=== PATIENT | female | born 1965 ===

== ENCOUNTER 2025-04-13 09:53 | Observation (INO) | payer MEDICARE, OTHER ==
[~2025-04-13] VITALS: Ht 154.9 cm; Wt 73.5 kg
[~2025-04-13 09:53] MED LIST: Lidocaine 2%-Epineph 1:200000 20 ML SDV ONE
[2025-04-13] MEDS ORDERED: METHI10 (10:48)
[2025-04-13] MEDS ORDERED: PROP10 (10:48)
[2025-04-13] MEDS ORDERED: TRELEGY ELLIPT1 EACH (10:48)
[2025-04-13] MEDS ORDERED: ALBU90OI (10:49)
[2025-04-13] MEDS ORDERED: DILTIAZEM 24HR120 M4 (10:49)
[2025-04-13] MEDS ORDERED: VITAMIN D325 MC3 (10:50)
[2025-04-13] MEDS ORDERED: Vitamin B Comple1 EA (10:50)
[2025-04-13] MEDS ORDERED: Alph-E-Mixed400 UNIT (10:50)
[2025-04-13] MEDS ORDERED: ALBU8HFA2 (10:51)
[2025-04-13] MEDS ORDERED: ZYRTEC10 M2 (10:51)
[2025-04-13] MEDS ORDERED: C COMPLEX1000 M1 (10:51)
[2025-04-13] MEDS ORDERED: Ipratropium/Albuterol SulF 2.5-0.5MG/3 ML Amp ONE (11:10)
[2025-04-13] MEDS ORDERED: FentaNYL Citrate 50 MCG/ML 2 ML Injection ONE (12:19)
[2025-04-13] MEDS ORDERED: Dexamethasone Sod Phos 10 MG/ML 1ML VIAL ONE (12:21)
[2025-04-13] MEDS ORDERED: Metoclopramide HCl 5MG / ML 2ML Vial ONE (12:21)
[2025-04-13] MEDS ORDERED: Phenylephrine HCl 100 MCG/ML-NS 10MLSYR (1MG/10ML) ONE ×2 (12:21→13:49)
[2025-04-13] MEDS ORDERED: Ondansetron HCl 2 MG / ML 2ML Vial ONE (12:21)
[2025-04-13] MEDS ORDERED: ePHEDrine Sulfate 50 MG/ML 1ML Injection ONE (13:01)
[2025-04-13] MEDS ORDERED: Bupivacaine 0.5% HCl 5 MG/ML 30MLVIAL ONE (13:38)
[2025-04-14] MEDS ORDERED: ACET325UDC PO (10:16)
== END 2025-04-13 18:17 | disposition home or self-care (01) ==
LOC: ORSCSDS 09:53 → PCU 10:01 → ORSCSDS 10:01 → PCU 18:17
PROVIDERS: Otolaryngology; ADMIT Family Medicine
PROC: 0GTH0ZZ Resection of Right Thyroid Gland Lobe, Open Approach (ICD-10-PCS; principal; 2025-04-13 11:30)
PROC: 0GTG0ZZ Resection of Left Thyroid Gland Lobe, Open Approach (ICD-10-PCS; principal; 2025-04-13 11:30)
DX: E05.20 Thyrotoxicosis with toxic multinodular goiter without thyrotoxic crisis or storm (principal); J39.8 Other specified diseases of upper respiratory tract; J43.9 Emphysema, unspecified; Z87.891 Personal history of nicotine dependence; Z79.899 Other long term (current) drug therapy; Z88.0 Allergy status to penicillin; Z91.018 Allergy to other foods; Z99.81 Dependence on supplemental oxygen
CPT/HCPCS: 88307; A9270; J0165; J1100; J2371; J2405; J2704; J2765; J3010; J7120

== ENCOUNTER 2025-04-13 15:30 | Observation (INO) | payer MEDICARE, OTHER ==
[~2025-04-13 15:30] MED LIST changes: +ALBU8HFA2; +ALBU90OI; +Alph-E-Mixed400 UNIT; +C COMPLEX1000 M1; +DILTIAZEM 24HR120 M4; -Lidocaine 2%-Epineph 1:200000 20 ML SDV ONE; +METHI10; +PROP10; +TRELEGY ELLIPT1 EACH; +VITAMIN D325 MC3; +Vitamin B Comple1 EA; +ZYRTEC10 M2
[2025-04-13] MEDS ORDERED: Ondansetron HCl 2 MG / ML 2ML Vial IV PRN (16:00)
[2025-04-13] MEDS ORDERED: FentaNYL Citrate 50 MCG/ML 2 ML Injection IV PRN ×2 (16:00→17:50)
[2025-04-13 17:34] LABS: BASOPHILS ABSOLUTE AUTO 0.04 K/mm3 (0.00-0.23); BASOPHILS PERCENT AUTO 0 % (0-2); EOSINOPHILS ABSOLUTE AUTO 0.00 K/mm3 (0.00-0.68); EOSINOPHILS PERCENT AUTO 0 % (0-6); Hematocrit 36.3 % (33.0-51.0); Hemoglobin 11.3 g/dL (11.5-16.0); IMMATURE GRAN ABSOLUTE AUTO 0.07 K/mm3 (0.00-0.10); IMMATURE GRAN PERCENT AUTO 1 % (0-1); LYMPHOCYTES ABSOLUTE AUTO 0.54 K/mm3 (0.84-5.20); LYMPHOCYTES PERCENT AUTO 4 % (21-46); MONOCYTES ABSOLUTE AUTO 0.11 K/mm3 (0.16-1.47); MONOCYTES PERCENT AUTO 1 % (4-13); Mean Corpuscular HGB Conc 31.1 g/dL (31.5-36.5); Mean Corpuscular Volume 94 fL (80-100); NEUTROPHILS ABSOLUTE AUTO 14.13 K/mm3 (1.96-9.15); NEUTROPHILS PERCENT AUTO 95 % (41-73); NRBC ABSOLUTE 0.00 K/mm3 (0.00-0.02); NRBC Auto 0.0 /100 WBC (0.0-0.2); Platelet Count 345 K/mm3 (150-400); RDW Coefficient Variation 12.5 % (11.7-14.2); RDW Standard Deviation 43.0 fL (35.1-46.3)
[2025-04-13 18:03] LABS: Alanine Aminotransfer (ALT/SGP 26.0 U/L (12-78); Albumin, Blood 3.3 g/dL (3.4-5.0); Albumin/Globulin Ratio 1.0 (0.8-1.8); Anion Gap 7.0 mmol/L (3-11); Aspartate Aminotrans (AST/SGOT 17.0 U/L (12-37); Bilirubin, Total 0.3 mg/dL (0.1-1.0); Blood Urea Nitrogen 10.0 mg/dL (8-24); CO2, Blood 31.0 mmol/L (21-32); Calcium, Blood 8.3 mg/dL (8.5-10.1); Chloride, Blood 101.0 mmol/L (98-108); Creatinine, Blood 0.44 mg/dL (0.40-1.00); Globulin, Blood 3.4 g/dL (2.2-4.0); Glucose, Blood 166.0 mg/dL (70-99); Potassium, Blood 3.6 mmol/L (3.5-5.5); Sodium, Blood 135.0 mmol/L (136-145); Total Protein, Blood 6.7 g/dL (6.4-8.2)
--- NOTE | 2025-04-13 18:17 | NUR ---
Summary. Pt arrived to ICU late afternoon from OR with anesthesia by bedside. Pt extubated in the room with good effect. On 02 via NC at 2L. Pt tolerating water well, regular diet ordered. Once surgery medications wore off, pt alert and oriented. No acute events this shif, see chart for details.
[2025-04-13 19:30] VITALS: BP 116/69
[2025-04-13 21:30] VITALS: BP 121/67
[2025-04-13 22:20] VITALS: BP 113/63
--- NOTE | 2025-04-13 22:37 | NUR ---
ASSUMPTION OF CARE REPORT RECIVED BY THIS RN FROM GASKET SUPERVISOR [place] @ [id number]. PT ARRIVED PT PCU 18 FROM ICU 13 @ AP[facility]OX 2215, PT SELF TRANSFERED FROM WHEELCHAIR TO BED. PT ON 2 L O2 VIA NC WHICH IS THE PTS BASELINE, PT HOLDING APPROPRIATE CONVERSATION, VOICE CLEAR, PT DENEIS SOB OR DIFFICULTY BREATHING, VSS, PT EDUCATED CURB SETTER HELPER LIGHT AND TO NOT AMBULATE WITHOUT ASSISTANCE, PT VERBALIZED UNDERSTANDING.
[2025-04-13 23:39] VITALS: BP 112/65
[2025-04-14 03:24] VITALS: BP 105/65
[2025-04-14 04:19] LABS: BASOPHILS ABSOLUTE AUTO 0.01 K/mm3 (0.00-0.23); BASOPHILS PERCENT AUTO 0 % (0-2); EOSINOPHILS ABSOLUTE AUTO 0.00 K/mm3 (0.00-0.68); EOSINOPHILS PERCENT AUTO 0 % (0-6); Hematocrit 35.7 % (33.0-51.0); Hemoglobin 11.5 g/dL (11.5-16.0); IMMATURE GRAN ABSOLUTE AUTO 0.04 K/mm3 (0.00-0.10); IMMATURE GRAN PERCENT AUTO 0 % (0-1); LYMPHOCYTES ABSOLUTE AUTO 0.75 K/mm3 (0.84-5.20); LYMPHOCYTES PERCENT AUTO 6 % (21-46); MONOCYTES ABSOLUTE AUTO 0.56 K/mm3 (0.16-1.47); MONOCYTES PERCENT AUTO 4 % (4-13); Mean Corpuscular HGB Conc 32.2 g/dL (31.5-36.5); Mean Corpuscular Volume 93 fL (80-100); NEUTROPHILS ABSOLUTE AUTO 11.73 K/mm3 (1.96-9.15); NEUTROPHILS PERCENT AUTO 90 % (41-73); NRBC ABSOLUTE 0.00 K/mm3 (0.00-0.02); NRBC Auto 0.0 /100 WBC (0.0-0.2); Platelet Count 354 K/mm3 (150-400); RDW Coefficient Variation 12.6 % (11.7-14.2); RDW Standard Deviation 42.2 fL (35.1-46.3)
[2025-04-14 04:43] LABS: Alanine Aminotransfer (ALT/SGP 25.0 U/L (12-78); Albumin, Blood 3.3 g/dL (3.4-5.0); Albumin/Globulin Ratio 0.9 (0.8-1.8); Anion Gap 5.0 mmol/L (3-11); Aspartate Aminotrans (AST/SGOT 15.0 U/L (12-37); Bilirubin, Total 0.3 mg/dL (0.1-1.0); Blood Urea Nitrogen 7.0 mg/dL (8-24); CO2, Blood 33.0 mmol/L (21-32); Calcium, Blood 8.1 mg/dL (8.5-10.1); Chloride, Blood 101.0 mmol/L (98-108); Creatinine, Blood 0.46 mg/dL (0.40-1.00); Globulin, Blood 3.8 g/dL (2.2-4.0); Glucose, Blood 178.0 mg/dL (70-99); Potassium, Blood 4.1 mmol/L (3.5-5.5); Sodium, Blood 135.0 mmol/L (136-145); Total Protein, Blood 7.1 g/dL (6.4-8.2)
--- NOTE | 2025-04-14 06:02 | NUR ---
SHIFT SUMMARY PT IS A&O X4, ABLE TO MAKE NEEDS KNOWN, MOVING ALL EXTREMITIES WITH PURPOSE, REPOSITIONING SELF IN BED, SBA TO BRP FOR CORD MANAGEMENT, OBEYS COMMANDS. CONTINUOUS SPO2, SPO2 GREATER 90% ON PT BASELINE OF 2L O2 VIA NC, LUNGS SOUND CLEAR T/O WITH DIM BASES, NO SIGNS OF RESPIRATORY DISTRESS, VOICE SOUNDS CLEAR. CONTINUOUS TELE MONITORING, SINUS RHYTHM 90 S, PULSES PRESENT T/O, PT DENEIS CHEST P/P T/O THIS SHIFT, BP STABLE WITH MAP GREATER THAN 65. BOWEL TONES PRESENT IN ALL 4Q, PT DENIES FEELINGS OF NAUSEA, OR CONSTIPATION. PT CONTINENT, URINE YELLOW. PT REPORTING PAIN TO THROAT/NECK, MEDICATED PER ORDERS, PT S/P THYROIDECTOMY 04/13/2025, DRESSING IS C/D/I. BED LOWEST POSITION, CALL LIGHT IN REACH, AWAITING TO GIVE REPORT TO ONCOMING RN.
[2025-04-14 07:53] VITALS: BP 120/62
--- NOTE | 2025-04-14 07:58 | NUR ---
ASSUMPITION NOTE: THIS RN TO ASSUME CARE OF PATIENT. PATIENT IS AWAKE IN BED EATING BREAKFAST. PATIENT REPORTED SOME MILD PAIN IN HER THROAT AREA. DECLINED PAIN MEDICATION AT THIS TIME DUE TO FEELNG NAUSEAOUS. WAS GIVEN TUMS TO TRY AND HELP WITH INDIGESTION AND WOULD LIKE TO TRY PAIN MEDICATION AFTER GETTING FOOD IN HER. PATIENT DECLINED ANY OTHER PAIN OR FEELING SHORT OF BREATH OR CHEST PAIN. HAS CALL LIGHT WITHIN REACH, BED IN LOWEST POSITION & STATING NOTHING ELSE IS NEEDED AT THIS TIME.
[2025-04-14] MEDS ORDERED: Acetaminophen 160MG / 5ML 10.15 UDC PO PRN (08:45)
--- NOTE | 2025-04-14 09:20 | NUR ---
MD ROUNDED: MD ROUNDED AND SPOKE WIHT PATIENT AND FAMILY AT BEDSIDE. PT WILL BE GOING HOME TODAY, MD TO SEND SCRIPT FOR TYLENOL SUSPESION TO HELP EASE SWALLOWING. THIS RN ASKED FOR ADDITONAL NAUSEA MEDICATION AND WATCHMAKER APPRENTICE TO PLACE ORDER.
[2025-04-14] MEDS ORDERED: Metoclopramide HCl 5MG / ML 2ML Vial IV ONE (09:45)
--- NOTE | 2025-04-14 09:54 | NUR ---
"Spiritual Care | Pt. Request Pt. is awake and sitting up in bed when she welcomes my visit. Family members are present at bedside. Facilitated a short life review. Pt. displayed evidence of being guarded, but welcomed prayer. Prayed with Pt. pt. displayed evidence of being supported and encouraged and verbalized gratitude for the spiritual care visit. Will remain available to the Pt."
[2025-04-14] MEDS ORDERED: ACET325UDC PO (10:16)
[2025-04-14 11:30] VITALS: BP 116/63
--- NOTE | 2025-04-14 11:56 | NUR ---
NAUSEA: PATIENT REPORTED FEEING NAUSEAOUS AND ASKED FOR MEDICATIONS PRIOR TO DISCHARGE. WAS GIVEN ANTI EMETICS & SOME TUMS TO SETTLE. PATIENT AWAITNG FAMILY TO RETURN PRIOR TO DISCHARGE.
--- NOTE | 2025-04-14 13:18 | NUR ---
DISCHARGE NOTE: PATIENT IS ALERT AND ORIENTED X4 & COOPERATIVE WITH HER CARE, IS ABLE TO MAKE NEEDS KNOWN. PATIENT SATTING >92% ON 2% WHICH IS PATIENTS BASELINE. PATIENT FAMILY HER RIDE. IV TAKEN OUT & TELE REMOVED. PATIENT WAS WHEELED OUT WITH FAMILY AND ALL PERSONAL BELONGINGS.
== END 2025-04-14 12:51 | disposition home or self-care (01) ==
LOC: ICUE 15:30 → PCU 15:31 → ICUE 15:31 → PCU 22:19
PROVIDERS: ADMIT Family Medicine
PROC: 0GTH0ZZ Resection of Right Thyroid Gland Lobe, Open Approach (ICD-10-PCS; principal; 2025-04-13)
PROC: 0GTG0ZZ Resection of Left Thyroid Gland Lobe, Open Approach (ICD-10-PCS; principal; 2025-04-13)
DX: R06.03 Acute respiratory distress (principal); E05.20 Thyrotoxicosis with toxic multinodular goiter without thyrotoxic crisis or storm; J43.9 Emphysema, unspecified; J39.8 Other specified diseases of upper respiratory tract; Z79.899 Other long term (current) drug therapy; Z88.0 Allergy status to penicillin; Z88.8 Allergy status to other drugs, medicaments and biological substances; Z91.018 Allergy to other foods; Z99.81 Dependence on supplemental oxygen
CPT/HCPCS: 36415; 80053; 85025; 88307; 96374; 96375; 96376; A9270; G0378; J0165; J1100; J2371; J2405; J2704; J2765; J3010; J7120